=== PATIENT | male | born 1940 | race Caucasian/White ===

== ENCOUNTER → 2018-08-10 | Outpatient (CLI) | payer BC, MEDICARE | END | disposition home or self-care (01) | LOC: CFH 15:33 → EDSTATUS 16:00 | PROVIDERS: ATTEND Family Medicine | DX: E04.2 Nontoxic multinodular goiter (principal) | CPT/HCPCS: 76536 ==

== ENCOUNTER → 2018-08-25 | Outpatient (CLI) | payer BC, MEDICARE ==
[~2018-08-25] MED LIST: OMNIPAQUE 350 MG/ML, 100ML BOTTLE ONE
== END | disposition home or self-care (01) ==
LOC: RAD 08:33
PROVIDERS: ATTEND Nurse Practitioner Family
DX: R42 Dizziness and giddiness (principal)
CPT/HCPCS: 70496; 70498; Q9967

== ENCOUNTER 2018-12-28 07:21 | Day surgery (SDC) | payer MEDICARE ==
[2018-12-28 08:05] VITALS: BP 128/79
[2018-12-28] MEDS ORDERED: TAMS-11 PO (08:11)
[2018-12-28] MEDS ORDERED: ALBUTEROL/IPRATROPIUM 2.5MG/0.5MG, 3 ML NPPB PRN (08:30)
[2018-12-28] MEDS ORDERED: ACETAMINOPHEN 325 MG TABLET PO PRN (08:30)
[2018-12-28] MEDS ORDERED: OXYcodone 5 MG/5 ML ORAL.SOL UDC PO PRN (08:30)
[2018-12-28] MEDS ORDERED: MIDAZOLAM 1 MG/ML, 2ML IV PRN (08:30)
[2018-12-28] MEDS ORDERED: hydrALAzine 20 MG/ML, 1ML IV PRN (08:30)
[2018-12-28] MEDS ORDERED: ONDANSETRON 2MG/ML, 2ML IV PRN (08:30)
[2018-12-28] MEDS ORDERED: FENTANYL PF 100 MCG/2ML IV PRN (08:30)
[2018-12-28] MEDS ORDERED: PROPOFOL 10 MG/ML, 20ML ONE (08:43)
[2018-12-28] MEDS ORDERED: PLEASE ENTER HEIGHT AND WEIGHT MC SCH (09:00)
== END 2018-12-28 11:10 | disposition home or self-care (01) ==
LOC: OUT 07:21
PROVIDERS: ATTEND Internal Medicine Gastroenterology
DX: C25.9 Malignant neoplasm of pancreas, unspecified (principal); N40.0 Benign prostatic hyperplasia without lower urinary tract symptoms; G47.33 Obstructive sleep apnea (adult) (pediatric); Z98.890 Other specified postprocedural states; Z87.891 Personal history of nicotine dependence
CPT/HCPCS: 43242; 88172; 88173; 88177; 88307; 88341; 88342; 88360; 93005; J2704

== ENCOUNTER 2019-01-25 09:24 | Outpatient (CLI) | payer MEDICARE ==
[~2019-01-25 09:24] MED LIST changes: -OMNIPAQUE 350 MG/ML, 100ML BOTTLE ONE; +TAMS-11 PO
== END 2019-01-25 23:59 | disposition home or self-care (01) ==
LOC: ROC 09:24
PROVIDERS: ATTEND Radiology Radiation Oncology
DX: C25.9 Malignant neoplasm of pancreas, unspecified (principal); M54.9 Dorsalgia, unspecified; G89.29 Other chronic pain; Z87.442 Personal history of urinary calculi
CPT/HCPCS: 99214; G0463

== ENCOUNTER → 2019-02-02 | Outpatient (CLI) | payer MEDICARE | END | disposition home or self-care (01) | LOC: RAD 12:07 | PROVIDERS: ATTEND Internal Medicine Hematology & Oncology | DX: Z45.2 Encounter for adjustment and management of vascular access device (principal); C25.9 Malignant neoplasm of pancreas, unspecified | CPT/HCPCS: 36573; C1751 ==

== ENCOUNTER 2019-05-25 07:58 | Outpatient (CLI) | payer MEDICARE ==
[~2019-05-25 07:58] MED LIST changes: +CAPE500T24 PO; +HYDR-3241 PO; +LIPA1CAP61 PO
== END 2019-05-25 23:59 | disposition home or self-care (01) ==
LOC: RAD 07:58
PROVIDERS: ATTEND Internal Medicine Hematology & Oncology
DX: Z45.2 Encounter for adjustment and management of vascular access device (principal); C25.9 Malignant neoplasm of pancreas, unspecified; G89.3 Neoplasm related pain (acute) (chronic); K21.9 Gastro-esophageal reflux disease without esophagitis; Z87.891 Personal history of nicotine dependence
CPT/HCPCS: 36573; 71045; C1751

== ENCOUNTER 2019-05-26 00:16 | Emergency (ER) | payer MEDICARE ==
[~2019-05-26] VITALS: Ht 182.9 cm; Wt 64.5 kg
[2019-05-26 03:32] VITALS: BP 113/55
== END 2019-05-26 04:35 | disposition home or self-care (01) ==
LOC: ED 00:43
DX: R50.9 Fever, unspecified (principal); C25.9 Malignant neoplasm of pancreas, unspecified; Z87.891 Personal history of nicotine dependence
CPT/HCPCS: 36415; 80053; 81001; 83605; 83690; 84145; 84484; 85025; 87040; 87077; 87086; 93005; 96365; 99284; J0696; 87186

== ENCOUNTER 2019-05-27 13:18 | Inpatient (IN) | payer MEDICARE ==
[~2019-05-27] VITALS: Ht 182.9 cm; Wt 68.7 kg
[2019-05-27] MEDS ORDERED: CEFTRIAXONE PMX 1GM/50ML 50 ML IV ONE (14:00)
[2019-05-27] MEDS ORDERED: CEFTRIAXONE PMX 1GM/50ML 50 ML ONE (14:25)
[2019-05-27] MEDS ORDERED: SODIUM CHLORIDE 0.9% 1,000 ML IV ONE (14:30)
[2019-05-27 14:42] LABS: ALANINE AMINOTRANSFERASE 64 U/L (12-78); ALBUMIN 2.7 g/dL (3.4-5.0); ANION GAP 6 mmol/L (5-15); CALCIUM 7.9 mg/dL (8.5-10.1); CHLORIDE 106 mmol/L (98-107); CREATININE 0.77 mg/dL (0.7-1.3)
[2019-05-27 14:44] LABS: ALKALINE PHOSPHATASE 322 U/L (45-117); BILIRUBIN,TOTAL 3.3 mg/dL (0.2-1.0); TOTAL PROTEIN 5.8 g/dL (6.4-8.2)
[2019-05-27 15:05] LABS: BASOPHILS # (AUTO) 0.03 x10^3/uL (0-0.1); BASOPHILS % (AUTO) 1 % (0-1); EOSINOPHILS % (AUTO) 0 % (1-7); LYMPHOCYTES # (AUTO) 0.66 x10^3/uL (1-3.4); LYMPHOCYTES % (AUTO) 10 % (22-44); MD NO; MEAN CORPUSCULAR HEMOGLOBIN 33.9 pg (27.5-34.5); MEAN CORPUSCULAR HGB CONC 33.1 g/dL (33.2-36.2); MEAN CORPUSCULAR VOLUME 102.6 fL (81-97); MEAN PLATELET VOLUME 9.2 fL (7.4-10.4); MONOCYTES # (AUTO) 0.58 x10^3/uL (0.2-0.8); MONOCYTES % (AUTO) 9 % (2-9); NEUTROPHILS # (AUTO) 5.34 x10^3/uL (1.8-6.8); NEUTROPHILS % (AUTO) 81 % (42-75); PLATELET COUNT 179 x10^3/uL (130-400); RED BLOOD COUNT 2.96 x10^6/uL (4.38-5.82); RED CELL DISTRIBUTION WIDTH 16.3 % (9.4-14.8)
[2019-05-27] MEDS ORDERED: SENNA/DOCUSATE TABLET PO PRN (15:30)
[2019-05-27] MEDS ORDERED: ONDANSETRON 2MG/ML, 2ML IVPush PRN (15:30)
[2019-05-27] MEDS ORDERED: ONDANSETRON ODT 4 MG PO PRN (15:30)
[2019-05-27] MEDS ORDERED: FENT1PAT77 SUBD (15:51)
[2019-05-27 16:30] VITALS: BP 126/70
[2019-05-27] MEDS: SODIUM CHLORIDE 0.9% 1,000 ML IV SCH (17:25)
[2019-05-27] MEDS: ENOXAPARIN 60 MG/0.6 ML SQ SCH (17:26)
[2019-05-27] MEDS: PIPERACILLIN/TAZO/PMX 3.375GM 50 ML IV SCH ×2 (17:47→23:35)
[2019-05-27 19:58] VITALS: BP 117/61
[2019-05-27] MEDS: ACETAMINOPHEN 325 MG TABLET PO PRN (20:30)
[2019-05-27 20:52] LABS: MICROSCOPIC AUTO
[2019-05-27 20:53] LABS: CULTURE INDICATED? YES
[2019-05-28 01:51] VITALS: BP 134/69
[2019-05-28 02:29] LABS: BASOPHILS # (AUTO) 0.03 x10^3/uL (0-0.1); BASOPHILS % (AUTO) 1 % (0-1); EOSINOPHILS % (AUTO) 0 % (1-7); LYMPHOCYTES # (AUTO) 0.91 x10^3/uL (1-3.4); LYMPHOCYTES % (AUTO) 16 % (22-44); MD NO; MEAN CORPUSCULAR HEMOGLOBIN 35.1 pg (27.5-34.5); MEAN CORPUSCULAR HGB CONC 33.5 g/dL (33.2-36.2); MEAN CORPUSCULAR VOLUME 104.7 fL (81-97); MEAN PLATELET VOLUME 9.6 fL (7.4-10.4); MONOCYTES # (AUTO) 0.45 x10^3/uL (0.2-0.8); MONOCYTES % (AUTO) 8 % (2-9); NEUTROPHILS # (AUTO) 4.32 x10^3/uL (1.8-6.8); NEUTROPHILS % (AUTO) 76 % (42-75); PLATELET COUNT 162 x10^3/uL (130-400); RED CELL DISTRIBUTION WIDTH 16.7 % (9.4-14.8)
[2019-05-28 02:40] LABS: ANION GAP 8 mmol/L (5-15); CALCIUM 7.3 mg/dL (8.5-10.1); CHLORIDE 108 mmol/L (98-107); CREATININE 0.62 mg/dL (0.7-1.3)
[2019-05-28] MEDS: PIPERACILLIN/TAZO/PMX 3.375GM 50 ML IV SCH ×4 (04:57→23:20)
[2019-05-28] MEDS: ENOXAPARIN 60 MG/0.6 ML SQ SCH (04:57)
[2019-05-28] MEDS: IBUPROFEN 200 MG TABLET PO PRN ×3 (05:04→15:20)
[2019-05-28 07:34] VITALS: BP 141/76
[2019-05-28] MEDS: TAMSULOSIN 0.4 MG CAP.ER.24H PO SCH (08:24)
[2019-05-28] MEDS: ENOXAPARIN 40 MG/0.4 ML SQ SCH (08:25)
[2019-05-28] MEDS ORDERED: FENTANYL 50 MCG PATCH TD SCH (09:00)
[2019-05-28] MEDS ORDERED: FENTANYL REMOVE PATCH NOTE XX SCH (09:00)
[2019-05-28] MEDS: SODIUM CHLORIDE 0.9% 1,000 ML IV SCH (12:05)
[2019-05-28 13:11] VITALS: BP 99/61
[2019-05-28] MEDS: ACETAMINOPHEN 325 MG TABLET PO PRN (17:38)
[2019-05-28 19:26] VITALS: BP 119/66
[2019-05-29 02:18] VITALS: BP 134/75
[2019-05-29] MEDS: PIPERACILLIN/TAZO/PMX 3.375GM 50 ML IV SCH ×4 (05:10→23:13)
[2019-05-29] MEDS: SODIUM CHLORIDE 0.9% 1,000 ML IV SCH ×2 (05:11→18:30)
[2019-05-29 07:21] VITALS: BP 122/71
[2019-05-29] MEDS: IBUPROFEN 200 MG TABLET PO PRN ×2 (08:04→18:27)
[2019-05-29] MEDS: TAMSULOSIN 0.4 MG CAP.ER.24H PO SCH (08:05)
[2019-05-29] MEDS: ENOXAPARIN 40 MG/0.4 ML SQ SCH (08:05)
[2019-05-29 12:54] VITALS: BP 112/66
[2019-05-29 20:34] VITALS: BP 120/67
[2019-05-30 02:20] VITALS: BP 117/71
[2019-05-30] MEDS: PIPERACILLIN/TAZO/PMX 3.375GM 50 ML IV SCH (05:24)
[2019-05-30] MEDS ORDERED: LEVOFLOXACIN/PMX 750MG/150ML 150 ML IV ONE (07:30)
[2019-05-30] MEDS: IBUPROFEN 200 MG TABLET PO PRN ×2 (07:37→13:58)
[2019-05-30] MEDS: ENOXAPARIN 40 MG/0.4 ML SQ SCH (07:37)
[2019-05-30 08:02] VITALS: BP 123/75
[2019-05-30] MEDS: TAMSULOSIN 0.4 MG CAP.ER.24H PO SCH (08:37)
[2019-05-30] MEDS ORDERED: LEVO750T26 PO (11:05)
[2019-05-30 12:51] VITALS: BP 104/54
[2019-05-31] MEDS ORDERED: LEVOFLOXACIN 750 MG TABLET PO SCH (07:30)
== END 2019-05-30 15:40 | disposition home or self-care (01) | DRG 872 ==
LOC: ED 14:58 → EDIP 15:18 → 3NW 16:33 → DCLOUNGE 05-30 15:34
PROVIDERS: ADMIT Internal Medicine; ATTEND Internal Medicine
DX: A41.9 Sepsis, unspecified organism (principal); C25.9 Malignant neoplasm of pancreas, unspecified; R65.20 Severe sepsis without septic shock; M54.9 Dorsalgia, unspecified; B96.20 Unspecified Escherichia coli [E. coli] as the cause of diseases classified elsewhere; G89.29 Other chronic pain; K59.00 Constipation, unspecified; Z80.0 Family history of malignant neoplasm of digestive organs; Z80.3 Family history of malignant neoplasm of breast; Z82.3 Family history of stroke; Z82.49 Family history of ischemic heart disease and other diseases of the circulatory system; Z87.442 Personal history of urinary calculi; Z87.891 Personal history of nicotine dependence
CPT/HCPCS: 36415; 71045; 80048; 80053; 81001; 83605; 84145; 85025; 87040; 87086; 93970; 96365; G0378; J0696; J1650; J1956; J2543; J7030

== ENCOUNTER 2019-06-14 18:52 | Emergency (ER) | payer MEDICARE ==
[~2019-06-14] VITALS: Ht 182.9 cm; Wt 64.6 kg
[2019-06-14 19:13] VITALS: BP 106/76
== END 2019-06-14 22:06 | disposition home or self-care (01) ==
LOC: ED 21:22
DX: S42.211A Unspecified displaced fracture of surgical neck of right humerus, initial encounter for closed fracture (principal); C25.9 Malignant neoplasm of pancreas, unspecified; W01.0XXA Fall on same level from slipping, tripping and stumbling without subsequent striking against object, initial encounter; Y93.89 Activity, other specified; Y92.009 Unspecified place in unspecified non-institutional (private) residence as the place of occurrence of the external cause; Y99.8 Other external cause status
CPT/HCPCS: 72125; 93005; 99284